=== PATIENT | male | born 2000 | race Caucasian/White ===

== ENCOUNTER 2022-05-10 20:32 | Emergency (ER) | payer SELFPAY ==
[~2022-05-10] VITALS: Ht 177.8 cm; Wt 68.2 kg
[~2022-05-10 20:32] MED LIST: NOCURR
[2022-05-10 20:35] VITALS: BP 142/97
[2022-05-10] MEDS ORDERED: SULFAMETHOX/TRIMETH DS 800-160 MG/TABLET PO ONE (22:15)
[2022-05-10] MEDS ORDERED: IBUPROFEN 600 MG TABLET PO ONE (22:15)
[2022-05-10] MEDS ORDERED: SULF-261 PO (22:21)
[2022-05-10] MEDS ORDERED: IBUP-1492 PO (22:21)
== END 2022-05-10 22:30 | disposition home or self-care (01) ==
LOC: EMS 20:32
DX: L03.012 Cellulitis of left finger (principal); F15.90 Other stimulant use, unspecified, uncomplicated
CPT/HCPCS: 10060; 99283